=== PATIENT | female | born 1950 | race Caucasian/White ===

== ENCOUNTER 2022-10-20 19:57 | Observation (INO) | payer MEDICARE, OTHER ==
[~2022-10-20] VITALS: Ht 157.5 cm; Wt 65.2 kg
[2022-10-20] MEDS ORDERED: ANTACID SUSP 30 ML UDC (MYLANTA) PO ONE (20:45)
[2022-10-20] MEDS ORDERED: LIDOCAINE 2% VISCOUS 15 ML UDC PO ONE (20:45)
[2022-10-20] MEDS ORDERED: ONDANSETRON 4 MG/2 ML (SDV) Z0FRAN IVP ONE (20:45)
[2022-10-20] MEDS ORDERED: LACTATED RINGERS 1,000 ML IV ONE (20:45)
[2022-10-20] MEDS ORDERED: ASPIRIN 81 MG CHEW (CHILDREN'S ASA) PO ONE (20:45)
[2022-10-20] MEDS ORDERED: NITROGLYCERIN 0.4 MG SL TABS BTL 25'S SL PRN (20:45)
--- NOTE | 2022-10-20 20:49 | ED Chest Pain ---
General Chief Complaint: Chest Pain Stated Complaint: CHEST PRESSURE/SOA Nursing Triage Note: Patient to ER POV room 5 via wc with c/o chest pressure, sob. Patient states she took nitro 20min PATENTS EXAMINER no relief. Started before 1899. Patient states the pain radiates across the chest up through the left side of neck and down the left side of her back over shoulder. hx of CHF has not seen her software asset manager since moving here in Apr. Source: patient Exam Limitations: no limitations History of Present Illness Date Seen by Provider: Oct 20, 2022 Time Seen by Provider: 20:25 Initial Comments This 72-year-old woman presents to the emergency room with complaints of chest pressure radiating into her neck and upper back. She has respiratory symptoms that include shortness of breath when lying flat and dyspnea on exertion. Chest discomfort is worse with exertion as well. She has a significant history of coronary artery disease with a stated history of 9 stents, 2 angioplasties, and CABG. She has recently moved to this area and has not yet established with a software asset manager. She was previously seeing Dr. Portillo at a [facility] facility in [place]. Her primary care provider is Dr. Littlejohn. She also sees an roof truss machine tender for hypothyroidism. She tried taking a nitroglycerin tablet at home which did not help her pain. She has had prior episodes of pain that were relieved with nitroglycerin. She reports her pain is 8-10 on a 10 point scale. She took aspirin 81 mg earlier today. She has not taken any other medication to treat pain. She denies smoking or drug use. She does drink alcohol 3 or 4 days/week. She had 2 beers earlier today. Patient has been a lifelong type I diabetic. Patient also notes a history of hiatal hernia. Allergies and Home Medications Allergies Coded Allergies: No Known Drug Allergies (Unverified , 10/20/22) Patient Home Medication List Home Medication List Reviewed: Yes Review of Systems Review of Systems Constitutional: no symptoms reported EENTM: No Symptoms Reported Respiratory: See HPI Cardiovascular: See HPI Gastrointestinal: No Symptoms Reported Genitourinary: No Symptoms Reported Musculoskeletal: no symptoms reported Skin: no symptoms reported Psychiatric/Neurological: No Symptoms Reported Endocrine: No Symptoms Reported Hematologic/Lymphatic: No Symptoms Reported Past Onpqaic-Uttusg-Xopewi Hx Patient Social History Tobacco Use?: No Substance use?: No Alcohol Use?: Yes Alcohol type: Beer Alcohol Frequency: Several times a month Immunizations Up To Date First/Initial COVID19 Vaccinat: unk COVID19 Vaccine Clam Picker: unk Past Medical History Surgeries: Yes (Cosmetic facial surgery) Abdominal (Abdominal plasty, colon resection), Cardiac (Angioplasty), CABG, Coronary Stent, Orthopedic (Carpal tunnel) Respiratory: No Cardiac: Yes (Congestive heart failure) Coronary Artery Disease Neurological: No : No Reproductive Disorders: No Genitourinary: No Gastrointestinal: Yes Obstructive Bowel, Hiatal Hernia Musculoskeletal: Yes Chronic Back Pain Endocrine: Yes Hypothyroidsim 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 oz. kg; 25.00 BMI Method: General Appearance: WD/WN, Mild Distress HEENT: PERRL/EOMI, Normal ENT Inspection Neck: Normal Inspection; No JVD Respiratory: Lungs Clear, Normal Breath Sounds, No Accessory Muscle Use, No Respiratory Distress, Other (Anterior chest tender to palpation) Cardiovascular: Regular Rate, Rhythm, No Edema, No Murmur, Normal Peripheral Pulses Gastrointestinal: Normal Bowel Sounds, Soft; No Distended; Tenderness (Epigastrium) Extremity: Normal Inspection, Non Tender, No Calf Tenderness, No Pedal Edema Neurologic/Psychiatric: Alert, Oriented x3, No Motor/Sensory Deficits, Normal Mood/Affect Skin: Normal Color, Warm/Dry Progress/Results/Core Measures Results/Orders Lab Results Laboratory Tests Test 10/20/22 20:18 10/20/22 22:35 10/20/22 22:58 10/20/22 23:35 Range/Units White Blood Count 6.1 4.3-11.0 10^3/uL Red Blood Count 3.98 3.80-5.11 10^6/uL Hemoglobin 11.1 L 11.5-16.0 g/dL Hematocrit 35 35-52 % Mean Corpuscular Volume 87 80-99 fL Mean Corpuscular Hemoglobin 28 25-34 pg Mean Corpuscular Hemoglobin Concent 32 32-36 g/dL Red Cell Distribution Width 17.0 H 10.0-14.5 % Platelet Count 229 130-400 10^3/uL Mean Platelet Volume 10.8 9.0-12.2 fL Immature Granulocyte % (Auto) 0 % Neutrophils (%) (Auto) 54 42-75 % Lymphocytes (%) (Auto) 36 12-44 % Monocytes (%) (Auto) 7 0-12 % Eosinophils (%) (Auto) 1 0-10 % Basophils (%) (Auto) 1 0-10 % Neutrophils # (Auto) 3.3 1.8-7.8 10^3/uL Lymphocytes # (Auto) 2.2 1.0-4.0 10^3/uL Monocytes # (Auto) 0.4 0.0-1.0 10^3/uL Eosinophils # (Auto) 0.1 0.0-0.3 10^3/uL Basophils # (Auto) 0.1 0.0-0.1 10^3/uL Immature Granulocyte # (Auto) 0.0 0.0-0.1 10^3/uL Prothrombin Time 12.7 12.2-14.7 SEC INR Comment 0.9 0.8-1.4 Activated Partial Thromboplast Time 31 24-35 SEC Sodium Level 131 L 135-145 MMOL/L Potassium Level 3.9 3.6-5.0 MMOL/L Chloride Level 97 L 98-107 MMOL/L Carbon Dioxide Level 21 21-32 MMOL/L Anion Gap 13 5-14 MMOL/L Blood Urea Nitrogen 9 7-18 MG/DL Creatinine 0.94 0.60-1.30 MG/DL Estimat Glomerular Filtration Rate 65 BUN/Creatinine Ratio 10 Glucose Level 160 H 70-105 MG/DL Calcium Level 9.8 8.5-10.1 MG/DL Corrected Calcium 9.5 8.5-10.1 MG/DL Magnesium Level 2.0 1.6-2.4 MG/DL Total Bilirubin 0.6 0.1-1.0 MG/DL Aspartate Amino Transf (AST/SGOT) 20 5-34 U/L Alanine Aminotransferase (ALT/SGPT) 15 0-55 U/L Alkaline Phosphatase 74 40-136 U/L Myoglobin 53.9 10.0-92.0 NG/ML Troponin I < 0.028 < 0.028 <0.028 NG/ML Total Protein 7.3 6.4-8.2 GM/DL Albumin 4.4 3.2-4.5 GM/DL Lipase 25 8-78 U/L Digoxin Level < 0.30 L 0.80-2.00 NG/ML Glucometer 99 86 70-110 MG/DL Test 10/21/22 00:47 Range/Units Glucometer 128 H 70-110 MG/DL My Orders Orders - TC CAPELLAN MD Ekg Tracing (10/20/22 19:59) Cbc With Automated Diff (10/20/22 20:25) Magnesium (10/20/22 20:25) Chest 1 View, Ap/Pa Only (10/20/22 20:25) Comprehensive Metabolic Panel (10/20/22 20:25) Myoglobin Serum (10/20/22 20:25) Protime With Inr (10/20/22 20:25) Partial Thromboplastin Time (10/20/22 20:25) O2 (10/20/22 20:25) Monitor-Rhythm Ecg Trace Only (10/20/22 20:25) Lipid Panel (10/21/22 06:00) Ed Iv/Invasive Line Start (10/20/22 20:25) Troponin I Aylin (10/20/22 20:25) Lactated Ringers (Lr 1000 Ml Iv Solution (10/20/22 20:45) Ondansetron Injection (Zofran Injectio (10/20/22 20:45) Lidocaine 2% Viscous 15 Ml (Xylocaine Vi (10/20/22 20:45) Antacid Suspension (Mylanta Suspension (10/20/22 20:45) Nitroglycerin 0.4 Mg Btl 25's (Nitrostat (10/20/22 20:45) Aspirin Chewable Tablet (Baby Aspirin Ch (10/20/22 20:45) Lipase (10/20/22 20:45) Morphine Injection (Morphine Injection (10/20/22 21:30) Ct Angio Chest W (R/O Pe) (10/20/22 21:23) Iohexol Injection (Omnipaque 350 Mg/Ml 1 (10/20/22 21:45) Received Contrast (Hold Metformin- Contr (10/20/22 21:45) Ns (Ivpb) (Sodium Chloride 0.9% Ivpb Bag (10/20/22 21:45) Morphine Injection (Morphine Injection (10/20/22 22:48) Promethazine Injection (Phenergan Injec (10/20/22 22:49) Troponin I Quay (10/20/22 23:30) Accucheck Stat ONCE (10/20/22 23:33) Accucheck Stat ONCE (10/20/22 23:33) Clopidogrel Tablet (Plavix Tablet) (10/20/22 23:45) Promethazine Injection (Phenergan Injec (10/20/22 23:45) Nitroglycerin Ointment (Nitrobid Ointme (10/20/22 23:45) Morphine Injection (Morphine Injection (10/20/22 23:45) Enoxaparin Injection (Lovenox Injection) (10/20/22 23:45) Cho 60g/M 3snack (16-2000 Ankit) (10/20/22 Dinner) Digoxin (10/21/22 00:55) Medications Given in ED Current Medications Medications Dose Ordered Sig/Laura Route Start Time Stop Time Status Last Admin Dose Admin Al Hydrox/Mg Hydrox/Simethicone 30 ml ONCE ONCE PO 10/20/22 20:45 10/20/22 20:46 DC 10/20/22 20:52 30 ML Aspirin 243 mg ONCE ONCE PO 10/20/22 20:45 10/20/22 20:46 DC 10/20/22 20:52 243 MG Clopidogrel Bisulfate 300 mg ONCE ONCE PO 10/20/22 23:45 10/20/22 23:46 DC 10/20/22 23:54 300 MG Enoxaparin Sodium 60 mg ONCE ONCE SC 10/20/22 23:45 10/20/22 23:46 DC 10/20/22 23:55 60 MG Iohexol 100 ml ONCE ONCE IV 10/20/22 21:45 10/20/22 21:46 DC 10/20/22 21:48 75 ML Lactated Ringer's 1,000 ml @ 0 mls/hr Q0M ONCE IV 10/20/22 20:45 10/20/22 20:46 DC 10/20/22 20:53 1,000 MLS/HR Lidocaine HCl 15 ml ONCE ONCE PO 10/20/22 20:45 10/20/22 20:46 DC 10/20/22 20:52 15 ML Morphine Sulfate 4 mg ONCE ONCE IVP 10/20/22 21:30 10/20/22 21:31 DC 10/20/22 21:26 4 MG Morphine Sulfate 4 mg ONCE ONCE IVP 10/20/22 23:45 10/20/22 23:46 DC 10/20/22 22:45 4 MG Nitroglycerin 0.5 inch ONCE ONCE TOP 10/20/22 23:45 10/20/22 23:46 RI 10/20/22 23:54 0.5 INCH Ondansetron HCl 4 mg ONCE ONCE IVP 10/20/22 20:45 10/20/22 20:46 DC 10/20/22 20:53 4 MG Promethazine HCl 25 mg ONCE ONCE IVP 10/20/22 23:45 10/20/22 23:46 DC 10/20/22 22:45 25 MG Sodium Chloride 100 ml ONCE ONCE IV 10/20/22 21:45 10/20/22 21:46 DC 10/20/22 21:48 80 ML Vital Signs/I&O 10/20/22 19:58 Temp 36.6 Pulse 78 Resp 18 B/P (MAP) 123/71 (88) Pulse Ox 99 O2 Delivery Room Air Blood Pressure Mean: 88 Progress Progress Note #1: Time: 20:46 Progress Note Patient was interviewed and examined. Chest pain panel is being obtained and run. She has tried nitroglycerin x1 at home which usually alleviates her pain. She has history of hiatal hernia. GI cocktail with accompanying Zofran will be attempted. If this does not provide relief of her pain, nitroglycerin will be attempted again. Her blood pressures are marginal in the 107-123 range systolic. We will initiate IV fluids before administering any further nitroglycerin. 3 aspirin 81 mg tablets will be administered. She took one 81 mg aspirin this morning. Further treatment, work-up, and disposition will be pending results of her studies and response to treatments. Progress Note #2: Progress Note Labs were reviewed. All labs were essentially unremarkable by my interpretation including CBC, CMP, lipase, magnesium, troponin, and myoglobin. Repeat troponin after 2 hours was also negative. Digoxin level was undetectable. Patient received aspirin and GI cocktail with Zofran. Pain was not alleviated. CT angiogram was obtained. Radiologist report indicated no pulmonary embolus or other acute pathology to explain her pain. There was no aortic dissection or an eurysm. Patient's pain was treated with morphine. She had persistent nausea after Zofran which was treated with Phenergan. Given patient's history of significant coronary artery disease and no explanation for her current pain syndrome, angina was not ruled out as a cause. Patient received a liter of IV fluid. Blood pressure did improve. I discussed the case with Dr. Ortega, ca rdiologist on-call. He suggested a 1/2 inch Nitropaste application. Nitroglycerin was avoided prior to that due to her blood pressure. He also recommended a loading dose of Plavix 300 mg and therapeutic Lovenox. These doses were administered in the ER. Patient states she was taken off of Plavix in [place] but does not provide a clear reason why. She denies any bleeding problems or gastric issues that would prompt discontinuation. Patient was agreeable to admission. We discussed CODE STATUS and she elected full code. Case was discussed with Dr. Ferguson, admitting physician for [facility], who excepted the admission. Initial ECG Impression Date: Oct 20, 2022 Initial ECG Impression Time: 20:03 Initial ECG Rate: 78 Initial ECG Rhythm: Normal Sinus Initial ECG Intervals: Normal Initial ECG Impression: Normal Comment Sinus rhythm with no ST elevation or depression. No significant abnormal intervals. No axis deviation. Diagnostic Imaging Diagonstic Imaging: Xray Plain Films/CT/US/NM/MRI: chest Comments NAME: JERRY HERNÁNDEZ [facility] REC#: [id number] PT STATUS: REG ER : 1950 PHYSICIAN: TC CAPELLAN MD ADMIT DATE: 10/20/22/ER Signed Date of Exam:10/20/22 CHEST 1 VIEW, AP/PA ONLY INDICATION: Chest pain EXAM: Portable chest at 8:45 PM FINDINGS: The heart size and pulmonary vascularity are normal. The lungs are clear. There are no effusions or pneumothoraces. IMPRESSION: Negative chest. Dictated by: Dictated on workstation # [id number] Dict: 10/20/222115 Trans: 10/20/222144 [facility] [id number] Interpreted by: MOLINA DASILVA MD Electronically signed by: MOLINA DASILVA MD 10/20/22 2145 Departure Communication (Admissions) Time/Spoke to Admitting Phy: 23:40 Dr. Ferguson Time/Spoke to Consulting Phy: 23:25 Dr. Alfonso Impression Primary Impression: Chest pain Qualified Codes: R07.9 - Chest pain, unspecified Additional Impression: Coronary artery disease Qualified Codes: I25.10 - Atherosclerotic heart disease of [place] coronary artery without angina pectoris Disposition: ADMITTED INPATIENT Condition: Stable Admissions Decision to Admit Reason: Admit from ER (General) Decision to Admit/Date: Oct 20, 2022 Time/Decision to Admit Time: 23:25 Departure-Patient Inst. Referrals: OBED LITTLEJOHN DO (PCP/Family) Primary Care Physician TC CAPELLAN MD Oct 20, 2022 20:49
[2022-10-20 21:02] LABS: BASOPHILS # (AUTO) 0.1 10^3/uL (0.0-0.1); BASOPHILS % (AUTO) 1 % (0-10); EOSINOPHILS # (AUTO) 0.1 10^3/uL (0.0-0.3); EOSINOPHILS % (AUTO) 1 % (0-10); HEMATOCRIT 35 % (35-52); HEMOGLOBIN 11.1 g/dL (11.5-16.0); LYMPHOCYTES # (AUTO) 2.2 10^3/uL (1.0-4.0); LYMPHOCYTES % (AUTO) 36 % (12-44); MEAN CORPUSCULAR HEMOGLOBIN 28 pg (25-34); MEAN CORPUSCULAR HGB CONC 32 g/dL (32-36); MEAN CORPUSCULAR VOLUME 87 fL (80-99); MEAN PLATELET VOLUME 10.8 fL (9.0-12.2); MONOCYTES # (AUTO) 0.4 10^3/uL (0.0-1.0); MONOCYTES % (AUTO) 7 % (0-12); NEUTROPHILS # (AUTO) 3.3 10^3/uL (1.8-7.8); NEUTROPHILS % (AUTO) 54 % (42-75); PLATELET COUNT 229 10^3/uL (130-400); WHITE BLOOD COUNT 6.1 10^3/uL (4.3-11.0)
[2022-10-20 21:06] LABS: INR 0.9 (0.8-1.4); PROTHROMBIN TIME PATIENT 12.7 SEC (12.2-14.7)
[2022-10-20 21:11] LABS: ALANINE AMINOTRANSFERASE 15 U/L (0-55); ALBUMIN 4.4 GM/DL (3.2-4.5); ALKALINE PHOSPHATASE 74 U/L (40-136); BILIRUBIN,TOTAL 0.6 MG/DL (0.1-1.0); BUN/CREATININE RATIO 10; CALCIUM 9.8 MG/DL (8.5-10.1); CARBON DIOXIDE 21 MMOL/L (21-32); CHLORIDE 97 MMOL/L (98-107); CREATININE SERUM 0.94 MG/DL (0.60-1.30); GFR ESTIMATED 65; GLUCOSE 160 MG/DL (70-105); LIPASE 25 U/L (8-78); POTASSIUM 3.9 MMOL/L (3.6-5.0); SODIUM 131 MMOL/L (135-145); TOTAL PROTEIN 7.3 GM/DL (6.4-8.2)
--- NOTE | 2022-10-20 21:20 | Diagnostic Imaging Report ---
INDICATION: Chest pain EXAM: Portable chest at 8:45 PM FINDINGS: The heart size and pulmonary vascularity are normal. The lungs are clear. There are no effusions or pneumothoraces. IMPRESSION: Negative chest. Dictated by: Dictated on workstation # [id number]
[2022-10-20] MEDS ORDERED: morphine INJ 4 MG/ML 1 ML (VIAL/SYRINGE) IVP ONE ×2 (21:30→23:45)
[2022-10-20] MEDS ORDERED: IOHEXOL 350 MG/ML 100 ML (OMNIPAQUE 350) VIAL IV ONE (21:45)
[2022-10-20] MEDS ORDERED: ETOMIDATE IV SOLN 20 MG/10 ML VIAL IV ONE (21:45)
[2022-10-20] MEDS ORDERED: NS 100 ML (IVPB) BAG IV ONE (21:45)
[2022-10-20] MEDS ORDERED: fentaNYL INJ 100 MCG/2 ML AMP IVP ONE (21:45)
[2022-10-20] MEDS ORDERED: HOLD METFORMIN - RECEIVED CONTRAST 20 ML VIAL IV SCH (21:45)
--- NOTE | 2022-10-20 21:57 | Diagnostic Imaging Report ---
INDICATION: Chest pain CTA CHEST: Thin axial sections through the chest were obtained following an intravenous contrast bolus. Multiplanar MIP images were reconstructed and reviewed. Low dose technique was used. There are postoperative changes from CABG surgery. Lungs are clear. There are no effusions or pneumothoraces. There is no hilar or mediastinal lymphadenopathy. There are no pulmonary emboli. There is no right ventricular strain. There is some calcific atherosclerosis of the aorta but no aneurysm or dissection. IMPRESSION: No acute abnormality is seen in the chest. Dictated by: Dictated on workstation # [id number]
[2022-10-20] MEDS ORDERED: morphine INJ 4 MG/ML 1 ML (VIAL/SYRINGE) ONE (22:48)
[2022-10-20] MEDS ORDERED: PROMETHAZINE INJ 25 MG/ML (PHENERGAN) AMP ONE (22:49)
[2022-10-20] MEDS ORDERED: ENOXAPARIN 60 MG/0.6 ML (LOVENOX) SYR SC ONE (23:45)
[2022-10-20] MEDS ORDERED: PROMETHAZINE INJ 25 MG/ML (PHENERGAN) AMP IVP ONE (23:45)
[2022-10-20] MEDS ORDERED: CLOPIDOGREL 300 MG (PLAVIX) TABLET PO ONE (23:45)
[2022-10-20] MEDS ORDERED: NITROGLYCERIN 2% OINT 1 GM UNIT DOSE PACKET TOP ONE (23:45)
[2022-10-21] VITALS (19 sets, daily range): BP systolic 91–141; BP diastolic 51–79
[2022-10-21] MEDS ORDERED: morphine INJ 4 MG/ML 1 ML (VIAL/SYRINGE) IV PRN (02:15)
[2022-10-21] MEDS ORDERED: ONDANSETRON 4 MG/2 ML (SDV) Z0FRAN IVP PRN (02:15)
[2022-10-21 05:38] LABS: BASOPHILS % (AUTO) 0 % (0-10); EOSINOPHILS # (AUTO) 0.1 10^3/uL (0.0-0.3); EOSINOPHILS % (AUTO) 1 % (0-10); HEMATOCRIT 36 % (35-52); HEMOGLOBIN 11.5 g/dL (11.5-16.0); LYMPHOCYTES # (AUTO) 1.9 10^3/uL (1.0-4.0); LYMPHOCYTES % (AUTO) 25 % (12-44); MEAN CORPUSCULAR HEMOGLOBIN 28 pg (25-34); MEAN CORPUSCULAR HGB CONC 32 g/dL (32-36); MEAN CORPUSCULAR VOLUME 87 fL (80-99); MEAN PLATELET VOLUME 10.9 fL (9.0-12.2); MONOCYTES # (AUTO) 0.6 10^3/uL (0.0-1.0); MONOCYTES % (AUTO) 8 % (0-12); NEUTROPHILS # (AUTO) 4.8 10^3/uL (1.8-7.8); NEUTROPHILS % (AUTO) 65 % (42-75); PLATELET COUNT 212 10^3/uL (130-400); WHITE BLOOD COUNT 7.4 10^3/uL (4.3-11.0)
[2022-10-21 05:55] LABS: CHLORIDE 98 MMOL/L (98-107); POTASSIUM 4.1 MMOL/L (3.6-5.0); SODIUM 132 MMOL/L (135-145)
[2022-10-21 05:56] LABS: CALCIUM 9.3 MG/DL (8.5-10.1)
[2022-10-21 05:57] LABS: GLUCOSE 240 MG/DL (70-105); TRIGLYCERIDES 236 MG/DL (<150); VLDL CHOLESTEROL 47 MG/DL (5-40)
[2022-10-21 05:58] LABS: CARBON DIOXIDE 25 MMOL/L (21-32)
[2022-10-21 06:01] LABS: CREATININE SERUM 0.93 MG/DL (0.60-1.30); GFR ESTIMATED 66
[2022-10-21 06:02] LABS: BUN/CREATININE RATIO 10; CHOLESTEROL 343 MG/DL (< 200)
[2022-10-21 06:03] LABS: HDL CHOLESTEROL 56 MG/DL (40-60)
[2022-10-21] MEDS: PANTOPRAZOLE 40 MG (PROTONIX) TAB PO SCH (06:08)
[2022-10-21] MEDS: inSUlin ASPART (NovoLOG) 1 UNIT/0.01 ML (CHARGE PER UNIT) SC SCH ×4 (06:08→21:20)
[2022-10-21] MEDS ORDERED: NITROGLYCERIN 2% OINT 1 GM UNIT DOSE PACKET TOP SCH (08:00)
[2022-10-21] MEDS: ASPIRIN E.C. 81 MG (ECOTRIN) TAB PO SCH (09:10)
[2022-10-21] MEDS: CLOPIDOGREL 75 MG (PLAVIX) TABLET PO SCH (09:10)
--- NOTE | 2022-10-21 11:00 | History & Physical ---
HPI History of Present Illness: Pt came to ER due to great pressure in chest yesterday in evening, has had pressure before but not like this. Has been moving from [place] to [place] and had just moved a load. Admits nausea along with it and her neck and face hurt. She is usually really cold, but felt warm yesterday, not sweaty. Today she is still having pressure but relieved compared to yesterday. Has a history of CHF and triple bypass in the past. Has had 9 stents and 2 balloons in past. Usually sees Dr. López in [place]. Last saw him a couple of years ago. Hasn't had testing since that time. Wanting to find a local Patrol Driver. Source: patient Date seen by provider: Oct 21, 2022 Time Seen by Provider: 10:57 Attending Physician Johnathan Teague DO PCP Admitting Physician: Alicia Greenfield MD Attending Physician: Alicia Greenfield MD Consult Date of Admission Oct 21, 2022 at 01:39 Home Medications Home Medications Reviewed patient Home Medication Reconciliation performed by pharmacy medication reconciliations eeg technician and/or nursing. Patients Allergies have been reviewed. 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 Chronic low back pain Hepatitis C treated around 1997 Hypothyroidism SurgHx: Stomach tumor removed (benign) Triple bypass Cardiac stenting x 9 Coronary artery ballooning Retinal surgery left x 2 Carpal tunnel release bilaterally Appendectomy Cholecystectomy Liver biopsy Breast biopsy x 2 Trigger finger release Tummy tuck Face lift Family Medical History Significant Family History: Heart Disease (father CHF), Diabetes Review of Systems (CHC) Constitutional: No fever EENTM: nose congestion, throat pain (started this morning) Respiratory: cough (chronic, relates to allergies), short of breath (yesterday) Cardiovascular: see HPI Gastrointestinal: abdominal pain (persistent lower abdominal since around April 2022), diarrhea (chronic since Apr 2022), nausea (yesterday), vomiting (twice a couple of weeks ago) Genitourinary: No dysuria; incontinence (stress) Musculoskeletal: back pain Skin: other (painful red spots in left axilla for about a week, has treated with Prid with some improvement) Reviewed Test Results Reviewed Test Results Lab Laboratory Tests Test 10/20/22 20:18 10/20/22 22:35 10/20/22 22:58 10/20/22 23:35 Range/Units White Blood Count 6.1 4.3-11.0 10^3/uL Red Blood Count 3.98 3.80-5.11 10^6/uL Hemoglobin 11.1 L 11.5-16.0 g/dL Hematocrit 35 35-52 % Mean Corpuscular Volume 87 80-99 fL Mean Corpuscular Hemoglobin 28 25-34 pg Mean Corpuscular Hemoglobin Concent 32 32-36 g/dL Red Cell Distribution Width 17.0 H 10.0-14.5 % Platelet Count 229 130-400 10^3/uL Mean Platelet Volume 10.8 9.0-12.2 fL Immature Granulocyte % (Auto) 0 % Neutrophils (%) (Auto) 54 42-75 % Lymphocytes (%) (Auto) 36 12-44 % Monocytes (%) (Auto) 7 0-12 % Eosinophils (%) (Auto) 1 0-10 % Basophils (%) (Auto) 1 0-10 % Neutrophils # (Auto) 3.3 1.8-7.8 10^3/uL Lymphocytes # (Auto) 2.2 1.0-4.0 10^3/uL Monocytes # (Auto) 0.4 0.0-1.0 10^3/uL Eosinophils # (Auto) 0.1 0.0-0.3 10^3/uL Basophils # (Auto) 0.1 0.0-0.1 10^3/uL Immature Granulocyte # (Auto) 0.0 0.0-0.1 10^3/uL Prothrombin Time 12.7 12.2-14.7 SEC INR Comment 0.9 0.8-1.4 Activated Partial Thromboplast Time 31 24-35 SEC Sodium Level 131 L 135-145 MMOL/L Potassium Level 3.9 3.6-5.0 MMOL/L Chloride Level 97 L 98-107 MMOL/L Carbon Dioxide Level 21 21-32 MMOL/L Anion Gap 13 5-14 MMOL/L Blood Urea Nitrogen 9 7-18 MG/DL Creatinine 0.94 0.60-1.30 MG/DL Estimat Glomerular Filtration Rate 65 BUN/Creatinine Ratio 10 Glucose Level 160 H 70-105 MG/DL Calcium Level 9.8 8.5-10.1 MG/DL Corrected Calcium 9.5 8.5-10.1 MG/DL Magnesium Level 2.0 1.6-2.4 MG/DL Total Bilirubin 0.6 0.1-1.0 MG/DL Aspartate Amino Transf (AST/SGOT) 20 5-34 U/L Alanine Aminotransferase (ALT/SGPT) 15 0-55 U/L Alkaline Phosphatase 74 40-136 U/L Myoglobin 53.9 10.0-92.0 NG/ML Troponin I < 0.028 < 0.028 <0.028 NG/ML Total Protein 7.3 6.4-8.2 GM/DL Albumin 4.4 3.2-4.5 GM/DL Lipase 25 8-78 U/L Digoxin Level < 0.30 L 0.80-2.00 NG/ML Glucometer 99 86 70-110 MG/DL Test 10/21/22 00:47 10/21/22 02:57 10/21/22 04:53 10/21/22 10:35 Range/Units Glucometer 128 H 204 H 162 H 70-110 MG/DL White Blood Count 7.4 4.3-11.0 10^3/uL Red Blood Count 4.18 3.80-5.11 10^6/uL Hemoglobin 11.5 11.5-16.0 g/dL Hematocrit 36 35-52 % Mean Corpuscular Volume 87 80-99 fL Mean Corpuscular Hemoglobin 28 25-34 pg Mean Corpuscular Hemoglobin Concent 32 32-36 g/dL Red Cell Distribution Width 17.2 H 10.0-14.5 % Platelet Count 212 130-400 10^3/uL Mean Platelet Volume 10.9 9.0-12.2 fL Immature Granulocyte % (Auto) 0 % Neutrophils (%) (Auto) 65 42-75 % Lymphocytes (%) (Auto) 25 12-44 % Monocytes (%) (Auto) 8 0-12 % Eosinophils (%) (Auto) 1 0-10 % Basophils (%) (Auto) 0 0-10 % Neutrophils # (Auto) 4.8 1.8-7.8 10^3/uL Lymphocytes # (Auto) 1.9 1.0-4.0 10^3/uL Monocytes # (Auto) 0.6 0.0-1.0 10^3/uL Eosinophils # (Auto) 0.1 0.0-0.3 10^3/uL Basophils # (Auto) 0.0 0.0-0.1 10^3/uL Immature Granulocyte # (Auto) 0.0 0.0-0.1 10^3/uL Sodium Level 132 L 135-145 MMOL/L Potassium Level 4.1 3.6-5.0 MMOL/L Chloride Level 98 98-107 MMOL/L Carbon Dioxide Level 25 21-32 MMOL/L Anion Gap 9 5-14 MMOL/L Blood Urea Nitrogen 9 7-18 MG/DL Creatinine 0.93 0.60-1.30 MG/DL Estimat Glomerular Filtration Rate 66 BUN/Creatinine Ratio 10 Glucose Level 240 H 70-105 MG/DL Calcium Level 9.3 8.5-10.1 MG/DL Troponin I < 0.028 <0.028 NG/ML Triglycerides Level 236 H <150 MG/DL Cholesterol Level 343 H < 200 MG/DL LDL Cholesterol Direct 279 H 1-129 MG/DL VLDL Cholesterol 47 H 5-40 MG/DL HDL Cholesterol 56 40-60 MG/DL Radiology 10/20/22 CTA chest: IMPRESSION: No acute abnormality is seen in the chest. Physical Exam-(CHC) Physical Exam Vital Signs VS - Last 72 Hours, by Label 10/20/22 10/21/22 10/21/22 10/21/22 19:58 01:45 02:00 02:02 Temp 36.6 Pulse 78 84 81 80 Resp 18 25 B/P (MAP) 123/71 (88) 113/68 117/55 (78) Pulse Ox 99 96 96 O2 Delivery Room Air Room Air Room Air 10/21/22 10/21/22 10/21/22 10/21/22 02:10 02:20 02:23 02:31 Pulse 79 78 87 Resp 17 28 39 B/P (MAP) 102/55 (80) 102/51 (68) 141/62 (85) Pulse Ox 88 91 98 O2 Delivery Room Air Room Air Room Air Room Air 10/21/22 10/21/22 10/21/22 10/21/22 02:45 02:50 03:00 03:15 Temp 36.6 Pulse 74 74 71 75 Resp 26 10 8 B/P (MAP) 107/53 (77) 107/53 (71) 111/54 (78) 111/63 (89) Pulse Ox 99 93 98 92 O2 Delivery Room Air Room Air Room Air Room Air 10/21/22 10/21/22 10/21/22 10/21/22 03:30 03:45 04:00 05:00 Pulse 71 67 75 70 Resp 11 7 14 15 B/P (MAP) 101/54 (68) 101/54 (73) 112/57 (87) 117/66 (83) Pulse Ox 93 95 94 99 O2 Delivery Room Air Room Air Room Air Room Air 10/21/22 10/21/22 10/21/22 10/21/22 06:00 07:30 07:43 08:00 Temp 36.5 Pulse 65 70 69 61 Resp 12 21 B/P (MAP) 100/54 (69) 112/67 (82) Pulse Ox 94 96 98 O2 Delivery Room Air Room Air Room Air 10/21/22 10/21/22 10/21/22 08:30 12:00 12:43 Temp 36.8 Pulse 65 72 Resp 16 B/P (MAP) 123/71 (88) Pulse Ox 98 96 O2 Delivery Room Air Room Air Capillary Refill : Less Than 3 Seconds General Appearance: no apparent distress Eyes: Left Eye Other (cloudy, abnormal pupil and iris) Respiratory: lungs clear, normal breath sounds Cardiovascular: regular rate, rhythm, no murmur Gastrointestinal: normal bowel sounds, non tender, soft Extremities: No pedal edema Neurologic/Psychiatric: alert, normal mood/affect Skin: normal color, warm/dry Assessment/Plan Assessment/Plan Admission Status: Observation (1) Chest pain Status: Acute Assessment & Plan: Troponins negative, but with extensive cardiac history. Aspirin, plavix. Check echo. Cardiology consulted, appreciate recommendations. Qualifiers: Qualified Codes: R07.9 - Chest pain, unspecified (2) Coronary artery disease Status: Chronic Assessment & Plan: With history of CABG, stenting and balooning. Needing new Patrol Driver. Appreciate Cardiology recommendations. Qualifiers: Qualified Codes: I25.10 - Atherosclerotic heart disease of [place] coronary artery without angina pectoris (3) Type 1 diabetes Status: Chronic Assessment & Plan: Insulin per home use if not NPO (4) CKD (chronic kidney disease) Status: Chronic Assessment & Plan: Per pt report has intermittent abnormal kidney testing. monitor. 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 Pt states she wast told statins are bad for diabetes and does not want to take them. Discussed recommendations for statins in diabetes and CAD, but also that she may require additional treatment even if she accepts statin given her markedly elevated LDL. (6) History of hepatitis C Status: Chronic Assessment & Plan: Per pt report cleared with treatment. (7) DVT prophylaxis Status: Acute Assessment & Plan: Enoxaparin ALICIA GREENFIELD MD Oct 21, 2022 10:59
[2022-10-21] MEDS: MUPIROCIN 2% OINT 22 GM (BACTROBAN) TUBE TOP SCH ×2 (13:55→21:18)
[2022-10-21] MEDS ORDERED: GABA-486 PO (14:00)
[2022-10-21] MEDS ORDERED: INSU100V (14:00)
[2022-10-21] MEDS ORDERED: PANT40TA52 PO (14:00)
[2022-10-21] MEDS ORDERED: TRAZ150T72 PO (14:00)
[2022-10-21] MEDS ORDERED: DULO60CA59 PO (14:00)
[2022-10-21] MEDS ORDERED: LEVO125C4 PO (14:00)
--- NOTE | 2022-10-21 16:36 | Consultation-Cardiology ---
HPI-Cardiology Cardiology Consultation: Date of Consultation 10/21/22 Time Seen by a Provider: 15:00 Date of Admission Attending Physician Johnathan Teague DO Admitting Physician Admitting Physician: Alicia Ferguson MD Attending Physician: Alicia Ferguson MD Consulting Physician ARTUR MAYORGA MD, MA, FACP, FACC, FSCAI, CCDS Physician requesting consult: Dr Ferguson HPI: Chief Complaint: Reason for Card consult: Chest discomfort 72 yo woman with h/o CABG and subsequent PCI (last in or around 2008 in [place], [place]) admitted with more than 24 hours of continuous chest discomfort: mid- sternal, radiating to the back, mild to mod, sharp to dull, w/o associated symptoms, w/o aggravating or relieving factors (except being worse in certain postures). Report gen malaise, cough productive of small quantities of yellowish sputum, and intermittent chills for the last several days. Denies leg swelling. Denies n/v/d Review of Systems-Cardiology Review of Systems Constitutional: As described under HPI, malaise, tiredness Eyes: No vision change Ears/Nose/Throat: No ear discharge, No nasal drainage, No recent hearing loss Respiratory: As described under HPI Cardiovascular: As described under HPI Gastrointestinal: As described under HPI Genitourinary: No dysuria, No hematuria, No urine frequency changes Musculoskeletal: No back pain, No joint pain Skin: No rash, No ulcerations Psychiatric/Neurological: No seizure, No focal weakness, No syncope Hematologic: No bleeding abnormalities [id number] Hx Patient Social History Smoking Status: Former Smoker (quit at age 34) Alcohol Use?: Yes (2x per week one or two beers) Pt feels they are or have been: No Past Medical History PMH As described under Assessment. Family Medical History Family Medical History: Does not report fam h/o early CAD or SCD Allergies and Home Medications Allergies Coded Allergies: No Known Drug Allergies (Unverified , 10/20/22) Patient Home Medication List Home Medication List Reviewed: Yes Duloxetine HCl (Duloxetine HCl) 60 Mg Capsule., 60 MG PO DAILY, (Reported) Entered as Reported by: ALICIA FERGUSON on 10/21/22 1400 Last Action: Converted Gabapentin (Gabapentin) 100 Mg Capsule, 2 CAP PO BID, (Reported) Entered as Reported by: ALICIA FERGUSON on 10/21/221399 Last Action: Continued Insulin Lispro (Humalog) 100 Unit/Ml Vial, 0 UD, (Reported) Entered as Reported by: ALICIA FERGUSON on 10/21/221399 Last Action: Reviewed Levothyroxine Sodium (Levothyroxine) 125 Mcg Capsule, 125 MCG PO DAILY, (Reported) Entered as Reported by: ALICIA FERGUSON on 10/21/221399 Last Action: Converted Pantoprazole Sodium (Pantoprazole Sodium) 40 Mg Tablet.dr, 40 MG PO DAILY, (Reported) Entered as Reported by: ALICIA FERGUSON on 10/21/221399 Last Action: Reviewed Trazodone HCl (Trazodone HCl) 150 Mg Tablet, 150 MG PO HS, (Reported) Entered as Reported by: ALICIA FERGUSON on 10/21/221399 Last Action: Continued Physical Exam-Cardiology Physical Exam Vital Signs/I&O 10/21/22 10/21/22 10/21/22 10/21/22 05:00 06:00 07:30 07:43 Temp 36.5 Pulse 70 65 70 69 Resp 15 12 B/P (MAP) 117/66 (83) 100/54 (69) Pulse Ox 99 94 96 O2 Delivery Room Air Room Air Room Air 10/21/22 10/21/22 10/21/22 10/21/22 08:00 08:30 12:00 12:43 Temp 36.8 Pulse 61 65 72 Resp 21 16 B/P (MAP) 112/67 (82) 123/71 (88) Pulse Ox 98 98 96 O2 Delivery Room Air Room Air Room Air Capillary Refill : Less Than 3 Seconds Constitutional: AAO x 3, well-developed, well-nourished HEENT: hearing is well preserved; No xanthelasmas are seen Neck: carotid pulses are 2 + bilaterally, with good upstrokes Respiratory: No accessory muscle use; chest expansion is symmetric, chest is bilaterally symmetric, other (good, bilat air entry) Cardiovascular: regular rate-rhythm, S1 and S2, systolic murmur (soft EDMAR at card base) Gastrointestinal: No tender; soft; No guarding, No rebound; audible bowel sounds Extremities: No clubbing, No cyanosis, No significant edema Neurologic/Psychiatric: oriented x 3, other (mvoes all limbs equaly) Skin: No rash on exposed areas, No ulcerations on exposed areas Data Review Labs Laboratory Tests 10/20/22 20:18: White Blood Count 6.1, Red Blood Count 3.98, Hemoglobin 11.1L, Hematocrit 35, Mean Corpuscular Volume 87, Mean Corpuscular Hemoglobin 28, Mean Corpuscular Hemoglobin Concent 32, Red Cell Distribution Width 17.0H, Platelet Count 229, Mean Platelet Volume 10.8, Immature Granulocyte % (Auto) 0, Neutrophils (%) ( Auto) 54, Lymphocytes (%) (Auto) 36, Monocytes (%) (Auto) 7, Eosinophils (%) (Auto) 1, Basophils (%) (Auto) 1, Neutrophils # (Auto) 3.3, Lymphocytes # (Auto) 2.2, Monocytes # (Auto) 0.4, Eosinophils # (Auto) 0.1, Basophils # (Auto) 0.1, Immature Granulocyte # (Auto) 0.0, Prothrombin Time 12.7, INR Comment 0.9, Activated Partial Thromboplast Time 31, Sodium Level 131L, Potassium Level 3.9, Chloride Level 97L, Carbon Dioxide Level 21, Anion Gap 13, Blood Urea Nitrogen 9, Creatinine 0.94, Estimat Glomerular Filtration Rate 65, BUN/Creatinine Ratio 10, Glucose Level 160H, Calcium Level 9.8, Corrected Calcium 9.5, Magnesium Level 2.0, Total Bilirubin 0.6, Aspartate Amino Transf (AST/SGOT) 20, Alanine Aminotransferase (ALT/SGPT) 15, Alkaline Phosphatase 74, Myoglobin 53.9, Troponin I < 0.028, Total Protein 7.3, Albumin 4.4, Lipase 25 10/20/22 22:35: Troponin I < 0.028, Digoxin Level < 0.30L 10/20/22 22:58: Glucometer 99 10/20/22 23:35: Glucometer 86 10/21/22 00:47: Glucometer 128H 10/21/22 02:57: Glucometer 204H 10/21/22 04:53: White Blood Count 7.4, Red Blood Count 4.18, Hemoglobin 11.5, Hematocrit 36, Mean Corpuscular Volume 87, Mean Corpuscular Hemoglobin 28, Mean Corpuscular Hemoglobin Concent 32, Red Cell Distribution Width 17.2H, Platelet Count 212, Mean Platelet Volume 10.9, Immature Granulocyte % (Auto) 0, Neutrophils (%) (Auto) 65, Lymphocytes (%) (Auto) 25, Monocytes (%) (Auto) 8, Eosinophils (%) (Auto) 1, Basophils (%) (Auto) 0, Neutrophils # (Auto) 4.8, Lymphocytes # (Auto) 1.9, Monocytes # (Auto) 0.6, Eosinophils # (Auto) 0.1, Basophils # (Auto) 0.0, Immature Granulocyte # (Auto) 0.0, Sodium Level 132L, Potassium Level 4.1, Chloride Level 98, Carbon Dioxide Level 25, Anion Gap 9, Blood Urea Nitrogen 9, Creatinine 0.93, Estimat Glomerular Filtration Rate 66, BUN/Creatinine Ratio 10, Glucose Level 240H, Calcium Level 9.3, Troponin I < 0.028, Triglycerides Level 236H, Cholesterol Level 343H, LDL Cholesterol Direct 279H, VLDL Cholesterol 47H, HDL Cholesterol 56 10/21/22 10:35: Glucometer 162H 10/21/22 15:25: Glucometer 90 Laboratory Tests 10/20/22 20:18 10/21/22 04:53 A/P-Cardiology Assessment/Admission Diagnosis Chest discomfort of undetermined etiology - no evidence of ACS CAD - h/o CABG in or around 2001 in [place], [place] - h/o PCI on several occ, last was in or around 2008 in [place], [place] DM II, insulin-requiring Hyperlipidemia (uncontrolled) Discussion and Recomendations * DAPT * Statin (if tolerated) * DM management is by the Med svce * MPI * Monitor labs ARTUR MAYORGA MD FACP [facility] CCDS Oct 21, 2022 16:36
[2022-10-21] MEDS ORDERED: LOPERAMIDE 2 MG (IMODIUM) TABLET PO PRN (16:45)
[2022-10-21] MEDS: ACETAMINOPHEN 500 MG TAB (TYLENOL) PO PRN (17:14)
[2022-10-21] MEDS: ENOXAPARIN 40 MG/0.4 ML (LOVENOX) SYR SC SCH (17:55)
[2022-10-21] MEDS ORDERED: traZODone 150 MG (DESYREL) TABLET PO SCH (21:00)
[2022-10-21] MEDS: GABAPENTIN 100 MG (NEURONTIN) CAP PO SCH (21:19)
[2022-10-22 01:57] VITALS: BP 152/81
[2022-10-22 04:09] LABS: HEMATOCRIT 35 % (35-52); HEMOGLOBIN 11.1 g/dL (11.5-16.0); MEAN CORPUSCULAR HEMOGLOBIN 28 pg (25-34); MEAN CORPUSCULAR HGB CONC 32 g/dL (32-36); MEAN CORPUSCULAR VOLUME 86 fL (80-99); MEAN PLATELET VOLUME 10.3 fL (9.0-12.2); PLATELET COUNT 205 10^3/uL (130-400)
[2022-10-22 04:13] VITALS: BP 121/69
[2022-10-22 04:22] LABS: POTASSIUM 4.4 MMOL/L (3.6-5.0)
[2022-10-22 04:23] LABS: CALCIUM 9.2 MG/DL (8.5-10.1)
[2022-10-22 04:28] LABS: CREATININE SERUM 0.96 MG/DL (0.60-1.30)
[2022-10-22] MEDS: inSUlin ASPART (NovoLOG) 1 UNIT/0.01 ML (CHARGE PER UNIT) SC SCH ×3 (06:15→18:18)
[2022-10-22] MEDS: PANTOPRAZOLE 40 MG (PROTONIX) TAB PO SCH (06:18)
[2022-10-22] MEDS ORDERED: LEVOTHYROXINE 125 MCG (LEVOTHROID) TABLET PO SCH (06:30)
[2022-10-22 07:56] VITALS: BP 134/69
[2022-10-22] MEDS ORDERED: DULoxetine 30 MG (CYMBALTA) CAP PO SCH (09:00)
[2022-10-22] MEDS: MUPIROCIN 2% OINT 22 GM (BACTROBAN) TUBE TOP SCH (09:42)
[2022-10-22] MEDS ORDERED: CATHETER FLUSH 10 ML SYR IVP PRN (10:15)
[2022-10-22] MEDS ORDERED: LEVO125T6 PO (11:02)
[2022-10-22] MEDS ORDERED: INSU100I23 SQ (11:02)
[2022-10-22] MEDS ORDERED: VITA0.4T2 PO (11:02)
[2022-10-22] MEDS ORDERED: ASPI-1238 PO (11:02)
[2022-10-22] MEDS ORDERED: MULT-1136 PO (11:02)
[2022-10-22] MEDS ORDERED: UBID100C17 PO (11:03)
[2022-10-22] MEDS ORDERED: DULO20CA19 PO (11:03)
[2022-10-22] MEDS ORDERED: IBUP-2473 PO (11:03)
[2022-10-22] MEDS ORDERED: ASCO500T17 PO (11:03)
[2022-10-22] MEDS ORDERED: VIT1CAPS5 PO (11:03)
[2022-10-22] MEDS ORDERED: INSU100V SQ (11:05)
[2022-10-22] MEDS ORDERED: REGADENOSON 0.4 MG/5 ML SYR (LEXISCAN) IV ONE ×2 (11:27→11:45)
[2022-10-22 11:40] VITALS: BP 117/78
[2022-10-22 12:48] VITALS: BP 122/70
[2022-10-22] MEDS: ASPIRIN E.C. 81 MG (ECOTRIN) TAB PO SCH (14:47)
[2022-10-22] MEDS: GABAPENTIN 100 MG (NEURONTIN) CAP PO SCH (14:48)
[2022-10-22] MEDS: CLOPIDOGREL 75 MG (PLAVIX) TABLET PO SCH (14:48)
[2022-10-22 15:57] VITALS: BP 116/62
--- NOTE | 2022-10-22 16:35 | Progress Note - Cardiology ---
Cardiology SOAP Progress Note Objective: I&O/Vital Signs 10/22/22 10/22/22 10/22/22 10/22/22 07:29 07:56 08:51 11:40 Temp 36.4 Pulse 76 73 70 Resp 16 B/P (MAP) 134/69 (90) 117/78 (91) Pulse Ox 94 O2 Delivery Room Air Room Air 10/22/22 10/22/22 10/22/22 12:48 14:11 15:57 Temp 36.6 37.0 Pulse 68 70 72 Resp 15 12 B/P (MAP) 122/70 (87) 116/62 (80) Pulse Ox 98 99 O2 Delivery Room Air Room Air 10/22/22 00:00 Intake Total 810 ml Output Total 450 ml Balance 360 ml Constitutional: AAO x 3, well-developed, well-nourished Respiratory: No accessory muscle use; chest expansion is symmetric, chest is bilaterally symmetric, other (good, bilat air entry) Cardiovascular: regular rate-rhythm, S1 and S2, systolic murmur (soft EDMAR at card base) Gastrointestional: No tender; soft; No guarding, No rebound; audible bowel sounds Extremities: No clubbing, No cyanosis, No significant edema Neurologic/Psychiatric: oriented x 3, other (mvoes all limbs equaly) Skin: No rash on exposed areas, No ulcerations on exposed areas Results/Procedures: Labs Laboratory Tests 10/21/22 16:55: Glucometer 57*L 10/21/22 17:33: Stool Occult Blood Immunoassay POSITIVEH 10/21/22 17:43: Glucometer 95 10/21/22 20:37: Glucometer 159H 10/22/22 01:59: Glucometer 185H 10/22/22 03:48: White Blood Count 5.0, Red Blood Count 4.02, Hemoglobin 11.1L, Hematocrit 35, Mean Corpuscular Volume 86, Mean Corpuscular Hemoglobin 28, Mean Corpuscular Hemoglobin Concent 32, Red Cell Distribution Width 17.3H, Platelet Count 205, Mean Platelet Volume 10.3, Sodium Level 135, Potassium Level 4.4, Chloride Level 99, Carbon Dioxide Level 26, Anion Gap 10, Blood Urea Nitrogen 12, Creatinine 0.96, Estimat Glomerular Filtration Rate 63, BUN/Creatinine Ratio 13, Glucose Level 207H, Calcium Level 9.2 10/22/22 06:10: Glucometer 295H 10/22/22 09:45: Glucometer 243H 10/22/22 10:35: Glucometer 244H 10/22/22 14:27: Glucometer 353H Laboratory Tests 10/20/22 20:18 10/21/22 04:53 10/22/22 03:48 A/P: Assessment: Chest discomfort of undetermined etiology - no evidence of ACS CAD - h/o CABG in or around 2001 in [place], [place] - h/o PCI on several occ, last was in or around 2008 in [place], [place] DM II, insulin-requiring Hyperlipidemia (uncontrolled) Plan: * DAPT * Continue statin * DM management is by the Med svce * MPI - results pending * Monitor labs RODRIGUEZ ECHEVERRIA Oct 22, 2022 16:35
[2022-10-22] MEDS: ACETAMINOPHEN 500 MG TAB (TYLENOL) PO PRN (16:56)
[2022-10-22] MEDS: ENOXAPARIN 40 MG/0.4 ML (LOVENOX) SYR SC SCH (18:19)
--- NOTE | 2022-10-22 18:21 | Progress Note ---
Objective Exam Last Set of Vital Signs Vital Signs Date Time Temp Pulse Resp B/P (MAP) Pulse Ox O2 Delivery O2 Flow Rate FiO2 10/22/22 15:57 37.0 72 12 116/62 (80) 99 Room Air Capillary Refill : Less Than 3 Seconds I&O Intake and Output 10/22/22 00:00 Intake Total 840 ml Output Total 950 ml Balance -110 ml Intake Oral 840 ml Output Urine Total 950 ml # Voids 1 # Bowel Movements 7 Daily Weight Change No Results/Procedures Lab Laboratory Tests 10/21/22 20:37: Glucometer 159H 10/22/22 01:59: Glucometer 185H 10/22/22 03:48: White Blood Count 5.0, Red Blood Count 4.02, Hemoglobin 11.1L, Hematocrit 35, Mean Corpuscular Volume 86, Mean Corpuscular Hemoglobin 28, Mean Corpuscular Hemoglobin Concent 32, Red Cell Distribution Width 17.3H, Platelet Count 205, Mean Platelet Volume 10.3, Sodium Level 135, Potassium Level 4.4, Chloride Level 99, Carbon Dioxide Level 26, Anion Gap 10, Blood Urea Nitrogen 12, Creatinine 0.96, Estimat Glomerular Filtration Rate 63, BUN/Creatinine Ratio 13, Glucose Level 207H, Calcium Level 9.2 10/22/22 06:10: Glucometer 295H 10/22/22 09:45: Glucometer 243H 10/22/22 10:35: Glucometer 244H 10/22/22 14:27: Glucometer 353H 10/22/22 17:53: Glucometer 329H Radiology 10/20/22 CTA chest: IMPRESSION: No acute abnormality is seen in the chest. Assessment/Plan Assessment/Plan (1) Chest pain Status: Acute Assessment & Plan: Troponins negative, but with extensive cardiac history. Aspirin, plavix. Check echo. Cardiology consulted, appreciate recommendations. Qualifiers: Qualified Codes: R07.9 - Chest pain, unspecified (2) Coronary artery disease Status: Chronic Assessment & Plan: With history of CABG, stenting and balooning. Needing new Online Marketing Manager. Appreciate Cardiology recommendations. Qualifiers: Qualified Codes: I25.10 - Atherosclerotic heart disease of [place] coronary artery without angina pectoris (3) Type 1 diabetes Status: Chronic Assessment & Plan: Insulin per home use if not NPO (4) CKD (chronic kidney disease) Status: Chronic Assessment & Plan: Per pt report has intermittent abnormal kidney testing. monitor. 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 Pt states she wast told statins are bad for diabetes and does not want to take them. Discussed recommendations for statins in diabetes and CAD, but also that she may require additional treatment even if she accepts statin given her markedly elevated LDL. (6) History of hepatitis C Status: Chronic Assessment & Plan: Per pt report cleared with treatment. (7) DVT prophylaxis Status: Acute Assessment & Plan: Enoxaparin ELEAZAR FERREIRA MD Oct 22, 2022 18:21
[2022-10-22] MEDS ORDERED: HYDROcodone/APAP 5 MG/325 MG (LORTAB) TAB PO PRN (18:30)
--- NOTE | 2022-10-22 19:25 | Progress Note - Cardiology ---
Cardiology SOAP Progress Note Subjective: Gen weakness and malaise No focal weakness No n/v/d Considerable improvement of cp No shortness of breath at rest No palp or syncope Objective: I&O/Vital Signs 10/22/22 10/22/22 10/22/22 10/22/22 07:29 07:56 08:51 11:40 Temp 36.4 Pulse 76 73 70 Resp 16 B/P (MAP) 134/69 (90) 117/78 (91) Pulse Ox 94 O2 Delivery Room Air Room Air 10/22/22 10/22/22 10/22/22 12:48 14:11 15:57 Temp 36.6 37.0 Pulse 68 70 72 Resp 15 12 B/P (MAP) 122/70 (87) 116/62 (80) Pulse Ox 98 99 O2 Delivery Room Air Room Air 10/22/22 00:00 Intake Total 810 ml Output Total 450 ml Balance 360 ml Constitutional: AAO x 3, well-developed, well-nourished Respiratory: No accessory muscle use; chest expansion is symmetric, chest is bilaterally symmetric, other (good, bilat air entry) Cardiovascular: regular rate-rhythm, S1 and S2, systolic murmur (soft EDMAR at card base) Gastrointestional: No tender; soft; No guarding, No rebound; audible bowel sounds Extremities: No clubbing, No cyanosis, No significant edema Neurologic/Psychiatric: oriented x 3, other (mvoes all limbs equaly) Skin: No rash on exposed areas, No ulcerations on exposed areas Results/Procedures: Labs Laboratory Tests 10/21/22 20:37: Glucometer 159H 10/22/22 01:59: Glucometer 185H 10/22/22 03:48: White Blood Count 5.0, Red Blood Count 4.02, Hemoglobin 11.1L, Hematocrit 35, Mean Corpuscular Volume 86, Mean Corpuscular Hemoglobin 28, Mean Corpuscular Hemoglobin Concent 32, Red Cell Distribution Width 17.3H, Platelet Count 205, Mean Platelet Volume 10.3, Sodium Level 135, Potassium Level 4.4, Chloride Level 99, Carbon Dioxide Level 26, Anion Gap 10, Blood Urea Nitrogen 12, Creatinine 0.96, Estimat Glomerular Filtration Rate 63, BUN/Creatinine Ratio 13, Glucose Level 207H, Calcium Level 9.2 10/22/22 06:10: Glucometer 295H 10/22/22 09:45: Glucometer 243H 10/22/22 10:35: Glucometer 244H 10/22/22 14:27: Glucometer 353H 10/22/22 17:53: Glucometer 329H Laboratory Tests 10/20/22 20:18 10/21/22 04:53 10/22/22 03:48 A/P: Assessment: Chest discomfort of undetermined etiology - no evidence of ACS - Echo of 10-21-22: LVEF 55-60% - MPI of 10-22-22: No evidence of ischemia or infarction, LVEF 87% CAD - h/o CABG in or around 2001 in [place], [place] - h/o PCI on several occ, last was in or around 2008 in [place], [place] DM II, insulin-requiring Hyperlipidemia (uncontrolled) Plan: * We recommend continuation of current cardiac regimen, including statins * DM management is by the Med svce * Ok to d/c from cardiac standpoint. Outpt cardiac f/u advised ARTUR MAYORGA MD FACP FAC CCDS Oct 22, 2022 19:25
--- NOTE | 2022-10-22 19:30 | Discharge Summary ---
Diagnosis/Chief Complaint Date of Admission Oct 21, 2022 at 01:39 Date of Discharge 10/22/2022 Admission Diagnosis Admission Diagnosis See problem list Discharge Diagnosis See below Problems/Diagnosis: (1) Chest pain Assessment & Plan: Troponins negative, but with extensive cardiac history. Aspirin, plavix. Check echo. Cardiology consulted, appreciate recommendations. 10/22: Normal stress test, ok to d/c from Cardiology Qualifiers: Qualified Codes: R07.9 - Chest pain, unspecified Status: Acute (2) Coronary artery disease Assessment & Plan: With history of CABG, stenting and balooning. Needing new Cracking Still Operator. Appreciate Cardiology recommendations. Qualifiers: Qualified Codes: I25.10 - Atherosclerotic heart disease of [place] coronary artery without angina pectoris Status: Chronic (3) Type 1 diabetes Assessment & Plan: Insulin per home use if not NPO Status: Chronic (4) CKD (chronic kidney disease) Assessment & Plan: Per pt report has intermittent abnormal kidney testing. monitor. Status: Chronic (5) HLD (hyperlipidemia) Assessment & Plan: Severe, suspect genetic. Pt states she wast told statins are bad for diabetes and does not want to take them. Discussed recommendations for statins in diabetes and CAD, but also that she may require additional treatment even if she accepts statin given her markedly elevated LDL. Status: Chronic (6) History of hepatitis C Assessment & Plan: Per pt report cleared with treatment. Status: Chronic (7) DVT prophylaxis Assessment & Plan: Enoxaparin Status: Acute Chief Complaint/HPI Chief Complaint/HPI Pt came to ER due to great pressure in chest yesterday in evening, has had pressure before but not like this. Has been moving from [place] to [place] and had ju st moved a load. Admits nausea along with it and her neck and face hurt. She is usually really cold, but felt warm yesterday, not sweaty. Today she is still having pressure but relieved compared to yesterday. Has a history of CHF and triple bypass in the past. Has had 9 stents and 2 balloons in past. Usually sees Dr. López in [place]. Last saw him a couple of years ago. Hasn't had testing since that time. Wanting to find a local Cracking Still Operator. Discharge Summary-Simple/Stand Procedures Stress testing Consultations Dr Alfonso Cardiology Discharge Physical Examination Allergies: Coded Allergies: No Known Drug Allergies (Unverified , 10/20/22) Vitals & I&Os Vital Sign - Last 12Hours Date Time Temp Pulse Resp B/P (MAP) Pulse Ox O2 Delivery O2 Flow Rate FiO2 10/22/22 15:57 37.0 72 12 116/62 (80) 99 Room Air Intake and Output 10/22/22 00:00 Intake Total 810 ml Output Total 450 ml Balance 360 ml General Appearance: Alert, Oriented X3, No Acute Distress Respiratory: Clear to Auscultation, Normal Air Movement Cardiovascular: Regular Rate, No Murmurs Abdominal: Normal Bowel Sounds, Soft, No Tenderness, No Masses Extremities: No Edema, No Tenderness/Swelling Neuro: Normal Speech Psych/Mental Status: Mental Status NL, Mood NL Hospital Course See final discharge diagnosis. Radiology Reviewed 10/20/22 CTA chest: IMPRESSION: No acute abnormality is seen in the chest. Discharge Condition at discharge stable Instructions to patient/family Please see electronic discharge instructions given to patient. Discharge Medications Reviewed and agree with Discharge Medication list on patient's Discharge Instruction sheet ELEAZAR FERREIRA MD Oct 22, 2022 19:30
[2022-10-22] MEDS ORDERED: ATOR40TA PO (19:34)
[2022-10-22] MEDS ORDERED: CLOP75TA28 PO (19:34)
--- NOTE | 2022-10-22 19:35 | Discharge Summary ---
Discharge [facility] Reconcile Patient Problems Problems Reviewed?: Yes Discharge Medications New, Converted or Re-Newed RX: Transmitted to Pharmacy New Medications: Atorvastatin Calcium (Lipitor) 40 Mg Tablet 40 MG PO HS, #30 TAB Clopidogrel Bisulfate (Clopidogrel) 75 Mg Tablet 75 MG PO DAILY, #30 TAB Continued Medications: Ascorbic Acid (Vitamin C) 500 Mg Tablet 500 MG PO DAILY, TAB Aspirin (Aspirin EC) 81 Mg Tablet.dr 81 MG PO DAILY, TAB Duloxetine HCl (Duloxetine HCl) 20 Mg Capsule.dr 20 MG PO DAILY, CAP Insulin Lispro (Humalog Kwikpen) 100 Unit/Ml Insuln.pen UNIT SQ AC, EA USES PER SLIDING SCALE WHEN PUMP IS NOT WORKING Insulin Lispro (Humalog) 100 Unit/Ml Vial UNIT SQ UD, EA USES PER PUMP (HAS A BACK UP HUMALOG PEN WHEN PUMP IS NOT WORKING) Levothyroxine Sodium (Levothyroxine Sodium) 125 Mcg Tablet 125 MCG PO DAILY, TAB Multivitamin (Multivitamin) 1 Each Tablet 1 EACH PO DAILY, TAB Pantoprazole Sodium (Pantoprazole Sodium) 40 Mg Tablet.dr 40 MG PO DAILY Trazodone HCl (Trazodone HCl) 150 Mg Tablet 300 MG PO HS, TAB TAKES 2 (150MG) TABS Ubidecarenone (Coq-10) 100 Mg Capsule 100 MG PO DAILY, CAP Vit A/C/E/Zinc/Co (Preservision Areds Softgel) 4,296-226 Capsule 2 EACH PO DAILY, CAP Vitamin B Complex/Folic Acid (B-Complex Tablet) 0.4 Mg Tablet 0.4 MG PO DAILY, TAB Discontinued Medications: Ibuprofen (Ibuprofen) 200 Mg Tablet 400 MG PO Q8H PRN for PAIN-MILD (1-4), TAB Patient Instructions Goal/Follow Up Appt: F.u with Dr Teague 1 week Activity & Diet Discharge Diet: ADA Diet Activity as Tolerated: Yes ELEAZAR FERREIRA MD Oct 22, 2022 19:35
--- NOTE | 2022-10-22 20:36 | STRESS TEST ---
DATE OF SERVICE: 10/22/2022 RESTING AND POST REGADENOSON TECHNETIUM-99M TETROFOSMIN SPECT CT IMAGING ORDERING PHYSICIAN: Dr. Alfonso. PRIMARY PHYSICIAN: Dr. Johnathan Teague. ATTENDING PHYSICIAN: Dr. Ferguson. CLINICAL DIAGNOSIS: Chest discomfort. Baseline images were carried out after injection of 10.9 mCi of technetium-99m tetrofosmin. This was followed by 0.4 mg regadenoson and 33 mCi of technetium-99m tetrofosmin for stress imaging. The electrocardiogram showed sinus rhythm. It did not change significantly with the regadenoson infusion. The patient tolerated the procedure well. Review of images at rest and following stress does not indicate any distinct perfusion defects consistent with significant myocardial ischemia or infarction. Gated images show normal global left ventricular systolic function with normal regional wall motion. Left ventricular ejection fraction is calculated to be 87%. CONCLUSIONS: 1. No evidence of significant myocardial ischemia or infarction on this study. 2. Normal to hyperdynamic left ventricular systolic function with a calculated ejection fraction 87%. Job ID: [id number] DocumentID: [id number] Dictated Date: 10/22/2022 17:23:49 Preparer Making Department Date: 10/22/2022 20:34:00 Dictated By: ARTUR ALFONSO MD; MA; FACP; FACC;
[2022-10-22] MEDS ORDERED: traZODone 150 MG (DESYREL) TABLET PO SCH (21:00)
[2022-10-23] MEDS ORDERED: DULoxetine 30 MG (CYMBALTA) CAP PO SCH (09:00)
[2022-10-23] MEDS ORDERED: DULoxetine 20 MG (CYMBALTA) CAP PO SCH (09:00)
== END 2022-10-22 20:45 | disposition home or self-care (01) ==
LOC: ER 20:00 → ICU 10-21 01:39
PROVIDERS: ADMIT Family Medicine; ATTEND Family Medicine
DX: R07.89 Other chest pain (principal); I25.10 Atherosclerotic heart disease of native coronary artery without angina pectoris; E10.22 Type 1 diabetes mellitus with diabetic chronic kidney disease; N18.9 Chronic kidney disease, unspecified; E78.5 Hyperlipidemia, unspecified; G89.29 Other chronic pain; M54.50 Low back pain, unspecified; E03.9 Hypothyroidism, unspecified; Z86.19 Personal history of other infectious and parasitic diseases; Z95.1 Presence of aortocoronary bypass graft; Z95.5 Presence of coronary angioplasty implant and graft; Z79.890 Hormone replacement therapy; Z87.891 Personal history of nicotine dependence
CPT/HCPCS: 71045; 71275; 78452; 80048 ×2; 80053; 80061; 80162; 82274; 82947 ×3; 83690; 83735; 83874; 84484 ×2; 85025 ×2; 85027; 85610; 85730; 93005 ×3; 93017; 93041; 99284; A9502; C8929; 36415; 93306; 96376

== ENCOUNTER → 2022-11-11 | Outpatient (CLI) | payer MEDICARE, OTHER ==
[~2022-11-11] MED LIST: ASCO500T17 PO; ASPI-1238 PO; ATOR40TA PO; CLOP75TA28 PO; DULO20CA19 PO; DULO60CA59 PO; GABA-486 PO; IBUP-2473 PO; INSU100I23 SQ; INSU100V; INSU100V SQ; LEVO125C4 PO; LEVO125T6 PO; MULT-1136 PO; PANT40TA52 PO; TRAZ150T72 PO; UBID100C17 PO; VIT1CAPS5 PO; VITA0.4T2 PO
--- NOTE | 2022-11-11 16:08 | Diagnostic Imaging Report ---
INDICATION: Postmenopausal state. COMPARISON: None available. FINDINGS: AP Spine L1-L4: [BMD (g/cm2): 1.246] [T-Score: 0.4] [Z-Score: 2.1] [BMD Previous: na] [BMD % Change: na] LT Hip Neck: [BMD (g/cm2): 0.756] [T-Score: -2.0] [Z-Score: -0.3] LT Hip Total: [BMD (g/cm2):0.867] [T-Score:-1.1] [Z-Score: 0.4] [BMD Previous: na] [BMD % Change: na] RT Hip Neck: [BMD (g/cm2):0.748] [T-Score:-2.1] [Z-Score:-0.3] RT Hip Total: [BMD (g/cm2):0.854] [T-score:-1.2] [Z-Score:0.3] [BMD Previous:na] [BMD % Change:na] *Indicates significant change from prior examination based on 95% confidence level. World Health Organization criteria for BMD interpretation classify patients as Normal (T-score at or above -1.0), Osteopenic (T-score between -1.0 and -2.5) or Osteoporotic (T-score at or below -2.5). LIMITATIONS AND MODIFICATION: None. FRACTURE RISK (FRAX SCORE): The ten year probability of (%): Major Osteoporotic Fracture: [16.7] Hip Fracture: [4.0] IMPRESSION: 1. Osteopenia (Low bone mass). 2. Baseline examination. 3. See below National Osteoporosis Foundation guidelines on when to potentially initiate pharmacologic therapy. Based on the National Osteoporosis Foundation Guidelines, pharmacologic treatment should be initiated in any of the following, unless clinical conditions suggest otherwise: * Any patient with prior fragility fracture of the hip or vertebrae. A spine fracture indicates 5X risk for subsequent spine fracture and 2X risk for subsequent hip fracture. * Osteoporosis (T-score <-2.5). * Postmenopausal women and men age 50 and older with low bone mass/osteopenia (T-score between -1.0 and -2.5) by DXA and 10-year major osteoporotic fracture greater than 20% or a 10-year probability of hip fracture greater than 3%. These fracture risks are supplied above in the FRAX score, if applicable. * Clinician judgement and/or patient preferences may indicate treatment for people with 10-year fracture probabilities above or below these levels. Dictated by: Dictated on workstation # [id number]
== END ==
LOC: RAD 13:00
PROVIDERS: ATTEND Pediatrics
DX: M85.80 Other specified disorders of bone density and structure, unspecified site (principal); Z78.0 Asymptomatic menopausal state
CPT/HCPCS: 77080

== ENCOUNTER → 2022-12-30 | Outpatient (CLI) | payer MEDICARE, OTHER ==
--- NOTE | 2022-12-30 20:19 | Diagnostic Imaging Report ---
PROCEDURE: MRI lumbar spine. TECHNIQUE: Multiplanar, multisequence MRI of the lumbar spine was performed without contrast. INDICATION: Chronic low back pain. EXAMINATION: Lumbar spine MRI without contrast 12/30/2022 FINDINGS: There is grade 1 anterolisthesis at L3-L4 and L4-L5. Remaining alignment is maintained. Vertebral body heights preserved. Tip of the conus unremarkable in appearance and location. T12-L1: There is intervertebral disc space narrowing and disc desiccation. Minimal broad-based bulging disc material is noted with no central stenosis. The neural foramina demonstrate moderate to severe narrowing on the left with no significant narrowing on the right. L1-L2: There is disc desiccation with minimal broad-based bulging disc material and bilateral facet and ligamentum flavum hypertrophy. There is secondary moderate central stenosis. There is moderate left neural foraminal narrowing. L2-L3: There is bilateral facet and ligamentum flavum hypertrophy with mild broad-based bulging disc material. There is no significant central stenosis. There is moderate bilateral neural foraminal narrowing. L3-L4: There is intervertebral disc space narrowing and disc desiccation. There is bilateral facet and ligamentum flavum hypertrophy. There is a left paracentral broad-based bulging disc. There is moderate central stenosis with narrowing of the lateral recesses. There is moderate bilateral neural foraminal stenosis. L4-L5: There is intervertebral disc space narrowing and disc desiccation. There is bilateral facet and ligamentum flavum hypertrophy. There is a broad-based bulging disc with moderate central stenosis. Narrowing of the lateral recesses noted bilaterally. There is mild left and moderate to severe right neural foraminal stenosis. L5-S1: There is intervertebral disc space narrowing and disc desiccation. There is bilateral facet and ligamentum flavum hypertrophy. There is a central disc protrusion containing a central annular tear. No central stenosis appreciated. There is moderate left neural foraminal narrowing. No narrowing seen on the right. Visualized intra-abdominal structures unremarkable. IMPRESSION: 1. Multilevel degenerative findings as detailed above causing areas of moderate central stenosis and multilevel moderate to severe neural foraminal narrowing. Dictated by: Dictated on workstation # [id number]
== END ==
LOC: RAD 12:55
PROVIDERS: ATTEND Pain Medicine Interventional Pain Medicine
DX: M47.816 Spondylosis without myelopathy or radiculopathy, lumbar region (principal); M48.061 Spinal stenosis, lumbar region without neurogenic claudication
CPT/HCPCS: 72148